=== PATIENT | female | born 1950 | race Caucasian/White ===

== ENCOUNTER 2020-11-27 19:43 | Emergency (ER) | payer OTHER ==
--- NOTE | 2020-11-27 23:36 | ER ---
Nurse's Notes [facility] Name: Andie Hernandez Age: 70 yrs Sex: Female : 1950 Arrival Date: 11/27/2020 Time: 19:56 Bed 13 Private MD: Diagnosis: Closed left distal radius fracture;Nondisplaced fracture of left ulna styloid process Presentation: 11/27 20:16 Chief complaint: Patient states: Yesterday morning, tripped and fell, hit head on the ca1 concrete, tried to catch self. Pain on the L forearm, L wrist. Denies LOC. Coronavirus screen: Client denies travel out of the [place] in the last 14 days. At this time, the client does not indicate any symptoms associated with coronavirus-19. Ebola Screen: Patient negative for fever greater than or equal to 101.5 degrees Fahrenheit, and additional compatible Ebola Virus Disease symptoms Patient denies exposure to infectious person. Patient denies travel to an Ebola-affected area in the 21 days before illness onset. No symptoms or risks identified at this time. Initial Sepsis Screen: Does the patient meet any 2 criteria? No. Patient's initial sepsis screen is negative. Does the patient have a suspected source of infection? No. Patient's initial sepsis screen is negative. Risk Assessment: Do you want to hurt yourself or someone else? Patient reports no desire to harm self or others. Onset of symptoms was November 27, 2020. 20:16 Method Of Arrival: Ambulatory ca1 20:16 Acuity: JF 4 ca1 Triage Assessment: 23:36 Injury Description: fall. zb Historical: - Allergies: 20:24 Augmentin; ca1 20:24 Bactrim; ca1 - PMHx: 20:24 None; ca1 - PSHx: 20:24 Back Surgery; Hysterectomy; Bladder Lift; ca1 - Immunization history:: Client reports receiving the 2nd dose of the Covid vaccine, Client reports receiving the 1st dose of the Covid vaccine, Last tetanus immunization: unknown, Pneumococcal vaccine is up to date, Flu vaccine is up to date. - Social history:: Smoking status: Patient/guardian denies using tobacco, the patient reports quitting approximately 20 years ago. Screenin:29 Abuse screen: Denies threats or abuse. Denies injuries from another. Nutritional zb screening: No deficits noted. Tuberculosis screening: No symptoms or risk factors identified. Fall Risk Fall in past 12 months (25 points). No secondary diagnosis (0 pts). No IV (0 pts). Ambulatory Aid- None/Bed Rest/Nurse Assist (0 pts). Gait- Normal/Bed Rest/Wheelchair (0 pts) Mental Status- Oriented to own ability (0 pts). Total [place] Fall Scale indicates Low Risk Score (25-44 pts). Fall prevention measures have been instituted. Placed close to Nursing Station Frequent Obs/Assesments occuring Family Present and informed to notify staff if they need to leave bedside As available Patient and Family Educated on Fall Prevention Program and strategies. Assessment: 22:00 General: Appears in no apparent distress. uncomfortable, Behavior is calm, cooperative. zb Pain: Complains of pain in left arm Pain does not radiate. Pain currently is 3 out of 10 on a pain scale. at worst was 10 out of 10 on a pain scale. Neuro: Level of Consciousness is awake, alert, obeys commands, Oriented to person, place, time, situation, Appropriate for age. Cardiovascular: Patient's skin is warm and dry. Respiratory: Airway is patent Respiratory effort is even, unlabored, Respiratory pattern is regular, symmetrical. GI: No deficits noted. Derm: Bruising that is bright red, on left arm. Musculoskeletal: Range of motion: intact in left wrist Swelling present in left arm. 23:36 Reassessment: Patient appears in no apparent distress at this time. Patient and/or zb family updated on plan of care and expected duration. Pain level reassessed. Patient is alert, oriented x 3, equal unlabored respirations, skin warm/dry/pink. splint completed. Vital Signs: 20:16 BP 163 / 101; Pulse 76; Resp 16 S; Temp 97(TE); Pulse Ox 98% on R/A; Weight 72.57 kg ca1 (R); Height 5 ft. 5 in. (165.10 cm) (R); Pain 8/10; 20:16 Body Mass Index 26.63 (72.57 kg, 165.10 cm) ca1 ED Course: 19:56 Patient arrived in ED. am4 20:20 Triage completed. ca1 20:24 Arm band placed on right wrist. ca1 21:29 Pawan Parada NP is PHCP. pm1 21:29 Abbe Balderas MD is Attending Physician. pm1 21:43 Mayi Real, RN is Primary Nurse. lp1 22:17 Forearm Left XRAY In Process Unspecified. EDMS 22:17 Hand Left 3 View XRAY In Process Unspecified. EDMS 23:29 Patient has correct armband on for positive identification. Call light in reach. Side zb rails up X 1. Adult w/ patient. Pulse ox on. NIBP on. Door closed. Noise minimized. 23:31 Orthoglass splint: Sugar tong splint applied on Sling applied to left arm. oe 23:35 Jose Gr MD is Referral Physician. pm1 Administered Medications: 21:54 Drug: [place] (HYDROcodone-acetaminophen) (7.5 mg-325 mg) 1 tabs Route: PO; lp1 Outcome: 23:35 Discharge ordered by . pm1 23:41 Patient left the ED. mw2 Signatures: Dispatcher [employer] EDMS Mayi Real, RN RN lp1 Pawan Parada, SERVICING REP SERVICING REP pm1 Naveed Poe MyKena mw2 Calista Tanner RN RN Brunilda De La Fuente RN RN zb Martinez, Ashley am4
--- NOTE | 2020-11-27 23:36 | EDPHYS ---
Physician Documentation [facility] Name: Andie Hernandez Age: 70 yrs Sex: Female : 1950 Arrival Date: 11/27/2020 Time: 19:56 Bed 13 Private MD: ED Physician Abbe Balderas HPI: 11/27 22:52 This 70 yrs old Female presents to ER via Ambulatory with complaints of Wrist pm1 Injury. 22:52 The patient or guardian reports pain, swelling. The complaints affect the left wrist pm1 diffusely. 22:52 Context: The problem was sustained at home, resulted from a fall, while walking, pm1 tripped, on an outstretched hand. Onset: The symptoms/episode began/occurred yesterday. Modifying factors: The symptoms are alleviated by holding still, the symptoms are aggravated by movement. Associated signs and symptoms: Pertinent negatives: cyanosis distally, decreased sensation distally, numbness distally, tingling distally. The patient has not experienced similar symptoms in the past. Patient tripped and fell forward with her left hand outstretched. Patient hit her head on the concrete. No headache, LOC, neck pain. Historical: - Allergies: 20:24 Augmentin; ca1 20:24 Bactrim; ca1 - PMHx: 20:24 None; ca1 - PSHx: 20:24 Back Surgery; Hysterectomy; Bladder Lift; ca1 - Immunization history:: Client reports receiving the 2nd dose of the Covid vaccine, Client reports receiving the 1st dose of the Covid vaccine, Last tetanus immunization: unknown, Pneumococcal vaccine is up to date, Flu vaccine is up to date. - Social history:: Smoking status: Patient/guardian denies using tobacco, the patient reports quitting approximately 20 years ago. ROS: 22:52 Constitutional: Negative for fever, chills, and weight loss, Neck: Negative for injury, pm1 pain, and swelling, Cardiovascular: Negative for chest pain, palpitations, and edema, Respiratory: Negative for shortness of breath, cough, wheezing, and pleuritic chest pain, Abdomen/GI: Negative for abdominal pain, nausea, vomiting, diarrhea, and constipation, Back: Negative for injury and pain. 22:52 Neuro: Negative for headache, weakness, numbness, tingling, and seizure. 22:52 MS/extremity: Positive for pain, swelling, Negative for decreased range of motion, deformity. 22:52 Skin: Positive for ecchymosis, swelling, of the left wrist, abrasion forehead. Exam: 22:52 Hand exam: brisk capillary refill to nails left hand. sensation intact. pm1 22:52 Constitutional: This is a well developed, well nourished patient who is awake, alert, and in no acute distress. Head/Face: Normocephalic, atraumatic. Chest/axilla: Normal chest wall appearance and motion. Nontender with no deformity. No lesions are appreciated. 22:52 Back: No spinal tenderness. No costovertebral tenderness. Full range of motion. Skin: Warm, dry with normal turgor. Normal color with no rashes, no lesions, and no evidence of cellulitis. 22:52 Cardiovascular: Exam negative for acute changes, Rate: normal, Rhythm: regular, Pulses: no pulse deficits are appreciated. 22:52 Respiratory: Exam negative for acute changes, respiratory distress, shortness of breath. 22:52 Musculoskeletal/extremity: Extremities: grossly normal except: noted in the left wrist: ecchymosis, swelling, tenderness, There is no evidence of laceration, puncture. Vital Signs: 20:16 BP 163 / 101; Pulse 76; Resp 16 S; Temp 97(TE); Pulse Ox 98% on R/A; Weight 72.57 kg ca1 (R); Height 5 ft. 5 in. (165.10 cm) (R); Pain 8/10; 20:16 Body Mass Index 26.63 (72.57 kg, 165.10 cm) ca1 MDM: 21:35 Patient medically screened. pm1 23:33 Data reviewed: vital signs. Data interpreted: Pulse oximetry: on room air is 98 %. pm1 Interpretation: normal. Counseling: I had a detailed discussion with the patient and/or guardian regarding: the historical points, exam findings, and any diagnostic results supporting the discharge/admit diagnosis, radiology results, the need for outpatient follow up, for definitive care, a orthopedic surgeon, to return to the emergency department if symptoms worsen or persist or if there are any questions or concerns that arise at home. 11/27 20:26 Order name: Forearm Left XRAY ca1 11/27 20:26 Order name: Hand Left 3 View XRAY ca1 11/27 22:52 Order name: Sugar Tong Forearm Splint; Complete Time: 23:36 pm1 11/27 22:52 Order name: Sling; Complete Time: 23:36 pm1 Administered Medications: 21:54 Drug: [place] (HYDROcodone-acetaminophen) (7.5 mg-325 mg) 1 tabs Route: PO; lp1 Disposition: 11/28 06:08 Co-signature as Attending Physician, Abbe Balderas MD. 7 Disposition: 11/27/20 23:35 Discharged to Home. Impression: Closed left distal radius fracture, Nondisplaced fracture of left ulna styloid process. - Condition is Stable. - Discharge Instructions: Cast or Splint Care, Adult, Wrist Fracture Treated With Immobilization, How to Use a Sling. - Prescriptions for Tramadol 50 mg Oral Tablet - take 1 tablet by ORAL route every 8 hours as needed; 12 tablet. - Medication Reconciliation Form, Thank You Letter, Antibiotic Education, Prescription Opioid Use form. - Follow up: Emergency Department; When: As needed; Reason: Worsening of condition. Follow up: Jose Gr MD; When: 2 - 3 days; Reason: Recheck today's complaints, Continuance of care, Re-evaluation by your physician. - Problem is new. - Symptoms have improved. Signatures: Dispatcher [employer] EDMS Mayi Real RN RN lp1 Pawan Parada NP CHANNEL CEMENTER INSOLE MACHINE pm1 Addis Fontenot mw2 Calista Tanner RN RN ca1 Abbe Balderas MD MD [facility] Corrections: (The following items were deleted from the chart) 11/27 23:41 23:35 11/27/2020 23:35 Discharged to Home. Impression: Closed left distal radius mw2 fracture; Nondisplaced fracture of left ulna styloid process. Condition is Stable. Forms are Medication Reconciliation Form, Thank You Letter, Antibiotic Education, Prescription Opioid Use. Follow up: Emergency Department; When: As needed; Reason: Worsening of condition. Follow up: Dr. Jose Gr; When: 2 - 3 days; Reason: Recheck today's complaints, Continuance of care, Re-evaluation by your physician. Problem is new. Symptoms have improved. pm1
[2020-11-27 23:46] VITALS: BP 163/101; TEMP 97; O2SAT 98
--- NOTE | 2020-11-28 08:23 | RAD REPORT ---
EXAM DESCRIPTION: RAD - Forearm Left - 11/27/2020 10:17 pm CLINICAL HISTORY: Pain;Swelling COMPARISON: No comparisons FINDINGS: Mildly impacted distal radius fracture is noted. No dislocation evident. Small ulnar stylo id avulsion fracture also present.
--- NOTE | 2020-11-28 08:26 | RAD REPORT ---
EXAM DESCRIPTION: RAD - Hand Left 3 View - 11/27/2020 10:17 pm CLINICAL HISTORY: PAIN COMPARISON: No comparisons FINDINGS: Mildly impacted distal radius fracture is present. Ulnar styloid avulsion fracture also se en. Advanced arthritic changes are noted involving the first carpal/metacarpal joint.
== END 2020-11-27 23:41 | disposition home or self-care (01) ==
LOC: ER 19:43
DX: S52.502A Unspecified fracture of the lower end of left radius, initial encounter for closed fracture (principal); S52.612A Displaced fracture of left ulna styloid process, initial encounter for closed fracture; Z87.891 Personal history of nicotine dependence; X58.XXXA Exposure to other specified factors, initial encounter
CPT/HCPCS: 99284

== ENCOUNTER 2020-12-02 05:53 | Day surgery (SDC) | payer OTHER ==
[2020-11-30 09:25] LABS: Absolute Lymphocytes (CBC) 1.3 K/uL (0.7-4.9); Basophils % 0.8 % (0-1.3); Hematocrit 36.1 % (36.0-45.0); Lymphocytes % 17.2 % (15.3-44.8); MPV 8.6 fL (7.6-11.3); RBC Red Blood Cell Count 4.01 M/uL (3.86-4.86)
[2020-11-30 09:40] LABS: Potassium 3.8 mmol/L (3.5-5.1)
--- NOTE | 2020-11-30 09:45 | RAD REPORT ---
EXAM DESCRIPTION: Shayne Velásquez (2 Views)11/30/2020 9:22 am CLINICAL HISTORY: Preop for wrist surgery COMPARISON: None FINDINGS: The lungs appear clear of acute infiltrate. The heart is normal size IMPRESSION: No acute abnormalities displayed
[2020-11-30 09:46] LABS: Protime INR 0.97
--- NOTE | 2020-12-01 07:20 | EKG ---
Test Date: 2020-11-30 Test Time: 08:02:54 Attendant Honor Bar: LILIA MEASUREMENT RESULTS: Intervals: Rate: 58 [place]: 140 QRSD: 80 QT: 404 QTc: 396 [place]: P: 49 [place]: 140 QRS: 18 T: 27 INTERPRETIVE STATEMENTS: Sinus bradycardia Otherwise normal ECG No previous ECG available for comparison Electronically Signed On 12-01-20 07:18:07 CDT by Richard Montana
[2020-12-02] MEDS ORDERED: CLINDAMYCIN INJ 600 MG in NA CHLORIDE 0.9% 50 ML IV SCH (06:00)
[2020-12-02] MEDS ORDERED: Ringers Lactate 1,000 ML IV ONE (06:31)
[2020-12-02] MEDS ORDERED: LIDOCAINE 1% MPF 5 ML VIAL ONE (06:53)
[2020-12-02] MEDS ORDERED: NS 0.9% VIAL 10 ML ONE (06:53)
[2020-12-02] MEDS ORDERED: dexAMETHasone 10 MG/ML VIAL ONE (06:53)
[2020-12-02] MEDS ORDERED: FENTANYL CITR 100 MCG/2 ML ONE (06:54)
[2020-12-02] MEDS ORDERED: ROPLVACAINE HCL 40 ML ONE (06:54)
[2020-12-02] MEDS ORDERED: MIDAZOLAM HCL 2 MG/2 ML INJ ONE (06:54)
[2020-12-02] MEDS ORDERED: propofoL 200 MG/20 ML VIAL IV ONE (07:27)
[2020-12-02] MEDS ORDERED: LIDOCAINE 2% MPF 5 ML VIAL ONE (07:27)
--- NOTE | 2020-12-02 08:33 | P.BOP ---
Preoperative diagnosis: left distal radius fracture Postoperative diagnosis: same Primary procedure: open reduction internal fixation left distal radius fracture Rubber Goods Inspector Tester: NONE,NONE Estimated blood loss: 3 cc Specimen: none Findings: see dictation Anesthesia: General Complications: None Implants: Acumed Narrow locking distal radius plate Fluids & blood products: per anesthesia record; TT: 50 mins @ 250 mmHg Transferred to: Recovery Room Condition: Good
[2020-12-02 09:23] VITALS: O2SAT 100
--- NOTE | 2020-12-02 09:39 | RAD REPORT ---
EXAM DESCRIPTION: RAD - Wrist Left 2 View - 12/02/2020 9:28 am CLINICAL HISTORY: Radial fracture FINDINGS: Eleven fluoroscopic spot images obtained. Fluoroscopy time 0.1 minute Plate and screws affix a radial fracture in good alignment. Surgery performed by Dr. Gr
--- NOTE | 2020-12-02 09:45 | RAD REPORT ---
EXAM DESCRIPTION: RAD - Wrist Left 2 View - 12/02/2020 9:27 am CLINICAL HISTORY: Radial fracture FINDINGS: Plates and screws a fix a radial fracture in good alignment. Avulsion fracture ulnar styloid process
[2020-12-02 10:29] VITALS: BP 155/71; TEMP 97.1
--- NOTE | 2020-12-02 19:11 | OP ---
Date of Procedure: 12/02/2020 Surgeon: Jose Gr MD Preoperative Diagnosis: Left distal radius fracture. Postoperative Diagnosis: Left distal radius fracture. Procedure Performed: Open reduction and internal fixation of left distal radius fracture. Anesthesia: MAC. Fluids: Per Anesthesia record. Estimated Blood Loss: 3 cc. Tourniquet Time: 50 minutes at 250 mmHg. Implants: Acumed nail and distal radius locking plate. Indication For Procedure: Andie is a 70-year-old female, who presented to my clinic after sustainin g a fall onto her left outstretched arm with subsequent pain to her left wrist. She was seen in the emergency room and diagnosed with a left distal radius fracture. She was in my clinic. X-rays demon strated dorsal angulation of approximately 20 degrees. I discussed with the patient at length risks and benefits associated with operative and nonoperative treatment including nonunion, infection, and posttraumatic arthritis. She expressed understanding and elected to proceed with operative treatment . Description Of Procedure: After informed consent was obtained, the patient was identified in the pre operative holding area. The left upper extremity was marked. The patient was then taken to the PACU where she underwent Carnot-Moon block by Anesthesia to the left upper extremity. She was then brought back to the operating room, transferred to the operating table in supine fashion, and placed under MAC an esthesia. The left upper extremity was then prepped and draped in usual sterile fashion. A time-out was initiated. The correct patient and procedure confirmed and identified. The patient did receive her preoperative prophylactic antibiotics. Esmarch was used to exsanguinate the left upper extremit y. The tourniquet was inflated to 250 mmHg. Approximately, a 10 cm longitudinal incision over the F CR was then made over the distal radius. Dissection was then taken out of the FCR tendon sheath, was split, divided both proximally and distally in line with the incision. The FCR tendon was then gent ly retracted radially and the floor of the tendon sheath was then opened using Metzenbaum's and divid ed both in line with the incision. Blunt dissection was then taken down at the distal radius with th e pronator quadratus was identified. A self-retaining retractor was then placed. A 15 blade was the n used to elevate the pronator quadratus off the distal radius along with the use of a wood handle el evator. The fracture was identified. The wrist was then reduced using gentle traction and manipulat ion. Fluoroscopy was then used to confirm reduction of the fracture. A narrow 3 hole Acumed distal radius plate was then placed over the distal radius. Proper positioning was confirmed using fluorosc opy and it was pinned in place using K-wires. A single 35 cortical screw was placed in the shaft of the distal radius through the plate in bicortical fashion holding the plate into position. Again, pr oper positioning was confirmed using fluoroscopy. This was followed by placement of a single cortica l screw and then distal fragment helping with reduction of the bone to the plate. This was followed by placement of 3 locking screws in unicortical fashion within the distal fragment. Again, proper pl acement of the screws as well as length was confirmed using fluoroscopy. Two remaining 3.5 cortical screws were placed within the shaft with good overall fixation and reduction of the fracture. Final x-rays using fluoroscopy were obtained and there was good overall alignment of the fracture as well a s placement of the plate. The wound was then irrigated thoroughly with normal saline. Subcutaneous tissue was approximated using a 2-0 Vicryl. Skin was approximated using a 4-0 Monocryl. Sterile edin ssings were applied. The patient was placed in a sugar-tong splint. Tourniquet was let down. The p atient was awakened and transferred to PACU in stable condition. Postoperative Plan: She will be nonweightbearing of her left upper extremity. She will follow up in 2 weeks for wound check and placement of a forearm brace. BRUCE/YESSICA Voice ID: [id number] Report ID: [id number]
== END 2020-12-02 10:20 | disposition home or self-care (01) ==
LOC: OR 05:53
PROVIDERS: ATTEND Orthopaedic Surgery Sports Medicine
PROC: 0PSJ04Z Reposition Left Radius with Internal Fixation Device, Open Approach (ICD-10-PCS; principal; 2020-12-02 07:15)
DX: S52.502A Unspecified fracture of the lower end of left radius, initial encounter for closed fracture (principal); Z20.822 Contact with and (suspected) exposure to COVID-19
CPT/HCPCS: 93005; 85025; 80048; 36415; 85610; 71046; 73100 ×2; 25607; U0003; J2704; J2250; J3010; J1100; J2795; J7120

== ENCOUNTER 2021-03-07 09:52 | Day surgery (SDC) | payer OTHER ==
[2021-03-07] MEDS ORDERED: Zoledronic Acid/Mannitol/Water 5 MG/100 ML INFUS.BOT IV ONE (10:00)
[2021-03-07 11:32] VITALS: O2SAT 99
[2021-03-07 12:01] VITALS: BMI 27.6
[2021-03-07 12:05] VITALS: BP 137/82; TEMP 96.8
== END 2021-03-07 11:15 | disposition home or self-care (01) ==
LOC: DS 09:52
PROVIDERS: ATTEND Internal Medicine
DX: M81.0 Age-related osteoporosis without current pathological fracture (principal); R13.10 Dysphagia, unspecified
CPT/HCPCS: 96365; J3489

== ENCOUNTER 2022-11-28 06:01 | Observation (INO) | payer OTHER, MEDICARE ==
[2022-11-23 09:45] LABS: Absolute Lymphocytes (CBC) 1.4 K/uL (0.7-4.9); Hematocrit 39.8 % (36.0-45.0); Lymphocytes % 27.5 % (15.3-44.8); MCV 91.3 fL (80-100); MPV 8.1 fL (7.6-11.3); RBC Red Blood Cell Count 4.36 M/uL (3.86-4.86)
[2022-11-23 09:56] LABS: Potassium 3.8 mEq/L (3.5-5.1)
[2022-11-28] MEDS ORDERED: CLINDAMYCIN 600MG/D5W 50 ML IV ONE (06:14)
[2022-11-28] MEDS ORDERED: Ringers Lactate 1,000 ML IV ONE ×2 (06:14→09:52)
[2022-11-28] MEDS ORDERED: FENTANYL CITR 100 MCG/2 ML ONE (06:40)
[2022-11-28] MEDS ORDERED: LIDOCAINE 2% MPF 5 ML VIAL ONE ×2 (06:40→08:05)
[2022-11-28] MEDS ORDERED: dexAMETHasone 4 MG/ML VIAL ONE (06:40)
[2022-11-28] MEDS ORDERED: MIDAZOLAM HCL 2 MG/2 ML INJ ONE (06:40)
[2022-11-28] MEDS ORDERED: BUPIVACAINE 0.25% PF 30 ML VIAL ONE (06:41)
[2022-11-28] MEDS ORDERED: HYDROMORPHONE HCL 1 MG/ML INJ ONE (07:14)
[2022-11-28] MEDS ORDERED: TRANEXAMIC ACID 1,000 MG/10 ML VIAL IV ONE (07:45)
[2022-11-28] MEDS ORDERED: propofoL 200 MG/20 ML VIAL IV ONE (08:05)
[2022-11-28] MEDS ORDERED: ONDANSETRON 4 MG/2 ML VIAL ONE (08:18)
[2022-11-28] MEDS ORDERED: KETOROLAC 30 MG/ML INJ ONE (09:55)
--- NOTE | 2022-11-28 10:34 | P.BOP ---
Preoperative diagnosis: left knee osteoarthritis Postoperative diagnosis: same Primary procedure: left total knee arthroplasty Elevator Erector: NONE,NONE Estimated blood loss: 40 cc Specimen: left knee bone remnants Findings: see dictation Anesthesia: General Complications: None Implants: Biomet Pratik Persona 8 Narrow CR femur, E tibia, 10 CR poly, 29 patella Fluids & blood products: per anesthesia record; TT: 67 mins @ 300 mmHg Transferred to: Recovery Room Condition: Good
[2022-11-28] MEDS ORDERED: HYDROCODONE/APAP 7.5/325 MG TAB PO PRN (10:35)
[2022-11-28] MEDS ORDERED: ACETAMINOPHEN 325 MG TABLET PO PRN (10:35)
[2022-11-28] MEDS ORDERED: DOCUSATE NA 100 MG CAP PO PRN (10:35)
[2022-11-28] MEDS ORDERED: ONDANSETRON 4 MG/2 ML VIAL IV PRN (10:35)
[2022-11-28] MEDS: HYDROMORPHONE HCL 1 MG/ML INJ ONE ×4 (11:14→11:55)
[2022-11-28 11:34] LABS: Hematocrit 35.8 % (36.0-45.0)
--- NOTE | 2022-11-28 11:39 | RAD REPORT ---
EXAM DESCRIPTION: RAD - Knee Left 2 View - 11/28/2022 11:28 am CLINICAL HISTORY: Post Op COMPARISON: No comparisons FINDINGS: Total knee arthroplasty is present. A small amount of air is present joint space. Skin sta ples are noted. No unexpected immediate postoperative finding.
--- OUTSIDE RECORDS SUMMARY | 2022-11-28 12:09 | XMS REPORT | Continuity of Care Document ---
:1950 Author Organization [facility] t Address [address] [place] [address] Care Team Providers Name Role Phone PCP, PATIENT DOES NOT HAVE A Primary Care Physician Unavaila ble Dani Montiel V Attending Clinician Unavailable Stephani DEVRIES Attending Clinician Unavailable Stephani Diaz Attending Clinician Dani Montiel V Admitting Clinician Unavailable Stephani DEVRIES Admitting Clinician Unavailable Payers Payer Name Policy Type Policy Number Effective Date Expiration Date S yaneth MEDICARE PART A \T\ [id number] 2014 B 00:00:00 [facility] [id number] 2021 MEDICARE SUPPLEMENT 00:00:00 Problems This patient has no known problems. Allergies, Adverse Reactions, Alerts Allergy Allergy Status Severity Reaction(s) Onset Inactive Treating Comm ents Source Name Type Date Date Clinician NO KNOWN Drug Active Univers ALLERGIE Class ity of S [facility] Social History Social Habit Start Date Stop Date Quantity Comments Source Exposure to 2021-12-27 2022-01-06 Not sure [facility] SARS-CoV-2 (event) 00:00:00 19:33:00 [facility] [place] Sex Assigned At [birth year] [facility] 00:00:00 00:00:00 [facility] Smoking Status Start Date Stop Date Source Unknown if ever smoked [facility] Medications This patient has no known medications. Vital Signs Vital Name Observation Time Observation Value Comments Source Systolic blood 2022-01-07 02:19:00 140 mm[Hg] Univer sity of pressure [facility] Diastolic blood 2022-01-07 02:19:00 87 mm[Hg] Unive rsity [facility] Heart rate 2022-01-07 02:19:00 76 /min [facility] Respiratory rate 2022-01-07 02:19:00 17 /min [facility] Oxygen saturation in 2022-01-07 02:19:00 98 /min [facility] Arterial blood by [facility] Pulse oximetry Branch Body temperature 2022-01-06 23:35:00 36.39 Stephany [facility] Body weight 2022-01-06 23:35:00 72.576 kg [facility] Procedures Procedure Date / Time Performed Performing Clinician Sour e XR FOREARM 2 VW RIGHT 2022-01-07 00:57:04 Stephani Devries [facility] NOTICE OF PRIVACY 2022-01-06 23:31:40 Doctor Unassigned, No Univ [facility] PRACTICES Name Medical Branch CONSENT/REFUSAL FOR 2022-01-06 23:31:24 [facility], [facility] Name [facility] Branch TREATMENT Encounters Start End Encounter Admission Attending Care Care Encounter Source Date/Time Date/Time Type Type Clinicians Facility Department ID 2022-08-30 Outpatient [facility] ST[facility] [id number] Common 16:33:01 [id number] [facility] 2022-08-29 Outpatient STLMLC ST[facility] [id number] Common 16:07:01 [facility] 2021-12-04 Outpatient STLMLC STLMLC [id number] Common 16:56:01 [facility] 2021-11-28 Outpatient STLMLC STLMLC [id number] Common 13:03:02 [facility] 2022-03-29 2022-03-29 Outpatient MELODIE MixJAMES BRANDON [id number] [facility] 12:00:00 12:00:00 Dani 03 [facility] 2022-01-06 2022-01-06 Emergency X Stephani DEVRIESMB ERT [id number] Univers 18:37:00 21:51:00 ity of [facility] 2022-01-06 2022-01-06 Emergency Ajyashree, Stephani [facility] [id number] Univers 18:37:00 21:51:00 Aleena [place] [id number] i ty [facility] [id number] [facility] [id number] [place] [id number] Branch Results This patient has no known results.
[2022-11-28 13:07] VITALS: BMI 25.7
[2022-11-28] MEDS ORDERED: PNEUMOCOCCAL VACCINE 0.5 ML IMVAC ONE (14:00)
--- NOTE | 2022-11-28 14:54 | P.OP ---
Preoperative diagnosis: left knee osteoarthritis Postoperative diagnosis: same Primary procedure: left total knee arthroplasty Anesthesia: general Estimated blood loss: 40 cc Specimen: left knee bone remnants Findings: see dictation Operative Technique: Indication For Procedure: Andie is a 72 year-old female presenting to my clinic with signs, symptoms and x-ray findings consistent with severe left knee osteoarthritis. I discussed with the patient at length risks and benefits associated with operative and nonoperative treatment. She had failed conservative treatment measures and had significant difficulties with ADLs secondary to her pain. We discussed operative treatment and elected to proceed with left total knee arthroplasty. She expressed understanding and elected to proceed with operative treatment. Description Of Procedure: After informed consent was obtained, the patient was identified in the preoperative holding area. The left lower extremity was marked. The patient was then taken to the PACU where she underwent a left lower extremity adductor canal block performed by Anesthesia. She was then taken to the operating room, transferred to the operating table in supine fashion, and placed under general anesthesia. The left lower extremity was then prepped and draped in usual sterile fashion. A time-out was initiated. The correct patient and procedure were confirmed and identified. The patient did receive her preoperative prophylactic antibiotics. The left lower extremity was then exsanguinated and tourniquet was inflated to 300 mmHg. Approximately 15 cm longitudinal incision was made centered over the anterior aspect of the left knee. Dissection was then taken to the extensor mechanism and a medial parapatellar arthrotomy was performed. The patella was everted and dislocated laterally and the knee was flexed in the fat pad. The patient had a cyst that was decompressed over the proximal medial tibia with elevation of the medial capsule off the proximal tibia. Medial and lateral meniscus and ACL were all excised exposing the distal femur. Excess hypertrophic synovium was also excised within the suprapatellar pouch. The patient had an MRI of her left knee preoperatively for surgical planning and creation of cutting blocks. The cutting block was then placed over the distal femur and pins were then placed. The distal femoral cutting block was then placed over the pins. An jefe wing was then used to ensure proper depth cut and the distal femur was then cut. The chamfer cutting guide was then placed over the distal end of the femur. Anterior, posterior cuts as well as anterior and posterior chamfer cuts were then made again confirming proper depth of the cut using an Jefe wing. Excess bone remnants were then sent to pathology for further evaluation. Next, attention was taken to the proximal tibia. A tibial jig and tibial cutting block was then placed on proximal aspect of the left tibia and locked into position. Pins were then placed and alignment guide was then used to confirm proper alignment of the cut and then coronal and sagittal planes. Once this was confirmed, the cutting jig was placed over the pins and the proximal tibia was cut. Sizing trays were then selected and size 10 mm spacer was used and there was good overall balance in flexion and extension. Next, the trial implants wer e then placed using the size 8 narrow CR femur and a size E tibia and an 10 mm CR poly. There was overall good range of motion and good stability. The trial implants were then removed. The wound was then irrigated thoroughly with normal saline and the knee was then injected with 30 cc of 0.5% Marcaine both in the posterior capsule and medial and lateral gutters as well as quadriceps tendon and periosteum. The tibia was then punched. The femur was drilled. The cement was then prepared on the back table. Cement was then placed first on the tibial surface followed by size E tibia. Excess cement was removed with Mcgee elevators. Size 8 narrow CR femur was then placed on the distal femur after cement was placed on the distal femur. Excess cement was then removed and a size 10 mm CR trial poly was then placed. The knee was held in extension as the cement hardened. Undersurface of the patella was prepared debriding osteophytes using rongeurs as well as osteophytes.. Cement was placed on the undersurface of the patella after it was cut and a size 29 patella was placed. Once the cement was hardened, the knee was ranged, there was good overall stability both in flexion, extension and as well as stability with varus and valgus stresses. Trial poly was then removed and a size 10 mm CR poly was then placed and locked into position. The knee was then ranged again. There was good overall range of motion both for flexion and extension with good stability. The wound was then irrigated again thoroughly with normal saline using pulse lavage. Tourniquet was let down. Hemostasis was achieved using Bovie electrocautery. Extensor mechanism was then approximated using a #1 Vicryl both in interrupted and running fashion. The fascia was then approximated using 0 Vicryl. Subcutaneous tissue was approximated with a 2-0 Vicryl. Skin was approximated using saulo. Sterile dressings were applied. The patient was awakened and transferred back in stable condition Complications: None Implants: [employer] Pratik Persona 8 narrow CR femur, E tibia, 10 CR poly, 29 patella Fluids & blood products: per anesthesia record; TT: 67 mins @ 300 mmHg Transferred to: Recovery Room Condition: Good
[2022-11-28] MEDS ORDERED: CLINDAMYCIN INJ 600 MG in NA CHLORIDE 0.9% 50 ML IV SCH (15:00)
[2022-11-28] MEDS: CLINDAMYCIN 600MG/D5W 50 ML IV SCH ×2 (15:13→23:25)
[2022-11-28] MEDS: TRAMADOL HCL 50 MG TAB PO PRN (23:33)
[2022-11-28 23:43] VITALS: O2SAT 97
[2022-11-29 03:50] LABS: Hematocrit 30.9 % (36.0-45.0)
[2022-11-29] MEDS ORDERED: ENOXAPARIN 30 MG/0.3 ML SQ SCH (06:00)
[2022-11-29] MEDS: CLINDAMYCIN 600MG/D5W 50 ML IV SCH (06:16)
[2022-11-29] MEDS: TRAMADOL HCL 50 MG TAB PO PRN (06:21)
[2022-11-29] MEDS ORDERED: PANTOPRAZOLE 40MG TABLET PO SCH (06:30)
[2022-11-29 08:30] VITALS: TEMP 97.4
[2022-11-29] MEDS ORDERED: CELECOXIB 100 MG CAPSULE PO SCH (09:00)
[2022-11-29] MEDS ORDERED: CETIRIZINE HCL 5 MG TABLET PO SCH (09:00)
[2022-11-29] MEDS ORDERED: VITAMIN K2 100 MCG PO SCH (09:00)
[2022-11-29] MEDS ORDERED: SPIRONOLACTONE 25 MG TABLET PO SCH (09:00)
[2022-11-29 09:02] VITALS: BP 105/65
== END 2022-11-29 13:49 | disposition home health service (06) ==
LOC: OR 06:01 → 2ND 12:07
PROVIDERS: ADMIT Orthopaedic Surgery Sports Medicine; ATTEND Orthopaedic Surgery Sports Medicine
PROC: 0SRD069 Replacement of Left Knee Joint with Oxidized Zirconium on Polyethylene Synthetic Substitute, Cemented, Open Approach (ICD-10-PCS; principal; 2022-11-28 08:00)
DX: M17.12 Unilateral primary osteoarthritis, left knee (principal)
CPT/HCPCS: 85025; 80048; 36415 ×3; 88305; 88311; 85018 ×2; 85014 ×2; 73560; 97110; 97116; 97139; 97161; 97530 ×2; 94010; 27447; C1776; J2704; J1100; J2001 ×2; J1650; J2250; J3010; J1170 ×3; J2405; J7120 ×2; 88304; G0378